=== PATIENT | male | born 1960 | race Caucasian/White ===

== ENCOUNTER 2017-07-27 12:18 | Observation (INO) | payer OTHER ==
[2017-07-27] MEDS ORDERED: MORPHINE SULFATE INJ 2 MG IVP PRN (14:40)
[2017-07-27] MEDS ORDERED: ATIVAN TAB 1 MG PO PRN (14:40)
[2017-07-27] MEDS ORDERED: NITROSTAT SL PRN (14:40)
[2017-07-27 15:13] LABS: BASOPHILS % (AUTO) 0.6 % (0.2-1.0); EOSINOPHILS # (AUTO) 0.1 x10^3/uL (0.0-0.2); HEMATOCRIT 38.1 % (42.0-54.0); HEMOGLOBIN 12.5 g/dL (13.5-18.0); LYMPHOCYTES # (AUTO) 1.5 X10^3/uL (1.3-2.9); LYMPHOCYTES % (AUTO) 21.2 % (21.0-51.0); MEAN CORPUSCULAR HEMOGLOBIN 27.4 pg (27.0-34.0); MEAN CORPUSCULAR HGB CONC 32.9 g/dL (33.0-35.0); MEAN CORPUSCULAR VOLUME 83.3 fL (80.0-100.0); MEAN PLATELET VOLUME 9.8 fL (7.4-11.0); MONOCYTES # (AUTO) 0.7 x10^3/uL (0.3-0.8); MONOCYTES % (AUTO) 9.4 % (0.0-13.0); NEUTROPHILS # (AUTO) 4.9 x10^3/uL (2.2-4.8); NEUTROPHILS % (AUTO) 67.8 % (42.0-75.0); PLATELET COUNT 153 X10^3/uL (150.0-450.0); RED BLOOD COUNT 4.58 X10^6/uL (4.7-6.0); RED CELL DISTRIBUTION WIDTH 14.2 % (11.6-16.5); WHITE BLOOD COUNT 7.3 X10^3/uL (3.6-10.0)
[2017-07-27] MEDS: PEPCID TAB 20 MG PO SCH ×2 (15:23→20:02)
[2017-07-27 15:29] LABS: ALANINE AMINOTRANSFERASE 51 Units/L (12-78); ALBUMIN 3.7 g/dL (3.4-5.0); ALKALINE PHOSPHATASE 54 Units/L (46-116); ASPARTATE AMINO TRANSFERASE 36 Units/L (15-37); BLOOD UREA NITROGEN 12 mg/dL (7-18); CALCIUM 8.8 mg/dL (8.5-10.1); CARBON DIOXIDE 32.2 mmol/L (21-32); CHLORIDE 106 mmol/L (98-107); CREATININE 1.14 mg/dL (0.70-1.30); GLUCOSE 97 mg/dL (65-99); SODIUM 143 mmol/L (136-145); TOTAL PROTEIN 7.5 g/dL (6.4-8.2); eGFR BLACK RACES > 60 (>60); eGFR NON BLACK RACES > 60 (>60)
[2017-07-27] MEDS: ZESTRIL TAB 10 MG PO SCH (15:32)
[2017-07-27 15:36] LABS: CKMB % 0.5 % (<4); CREATINE KINASE 338 Units/L (39-308); CREATINE KINASE MB 1.6 ng/mL (0-4.0); TROPONIN I < 0.02 ng/mL (0-1.5)
[2017-07-27] MEDS ORDERED: ANTIVERT TAB 25 MG PO PRN (15:44)
[2017-07-27] MEDS: PLAVIX PO SCH (15:50)
[2017-07-27] MEDS: ASPIRIN PO SCH (15:50)
[2017-07-27] MEDS: PROTONIX INJ 40 MG VIAL IVP SCH (15:51)
[2017-07-27] MEDS: NS 1000 ML 1,000 ML IV SCH (15:51)
[2017-07-27 15:58] VITALS: BMI 44.6
[2017-07-27 16:13] LABS: BILIRUBIN,URINE NEGATIVE (NEGATIVE); BLOOD/HEMOGLOBIN,URINE NEGATIVE (NEGATIVE); GLUCOSE, URINE NEGATIVE (NEGATIVE); KETONES,URINE NEGATIVE (NEGATIVE); LEUKOCYTE ESTERASE ,URINE NEGATIVE (NEGATIVE); NITRITES,URINE NEGATIVE (NEGATIVE); PROTEIN,URINE NEGATIVE (NEGATIVE); UROBILINOGEN,URINE NORMAL (NORMAL)
--- NOTE | 2017-07-27 16:14 | RAD ---
HISTORY: 56-year-old male with chest pain. Study: Frontal view of the chest. Comparison: None. Findings: The trachea is midline. The cardiac silhouette is enlarged. The lungs are clear without focal conso lidation, effusion or pneumothorax. Soft tissues are unremarkable. Osseous structures are unremarkab le. IMPRESSION: 1. Cardiomegaly without other acute cardiopulmonary process. Reported By:
[2017-07-27 16:24] LABS: AMORPHOUS SEDIMENT,UR TRACE /HPF (NEGATIVE); APPEARANCE,URINE CLEAR (CLEAR); BACTERIA,URINE NEGATIVE /HPF (NEGATIVE); COLOR,URINE YELLOW (YELLOW); RBC,URINE NONE SEEN /HPF (NEGATIVE); SQUAMOUS EPITHELIAL CELL,UR NEGATIVE /HPF (NEGATIVE)
[2017-07-27] MEDS ORDERED: NS 100 ML IV 100 ML IV ONE (18:22)
--- NOTE | 2017-07-27 18:23 | DR.H&P ---
H&P - History & Physical for Day of: H&P Date: 07/27/17 - Chief Complaint Chief Complaint: CHEST PAIN, ABDOMINAL PAIN - Allergies Allergies/Adverse Reactions: Allergies Allergy/AdvReac Type Severity Reaction Status Date / Time No Known Drug Allergies Allergy Verified 07/27/17 14:39 - History of Present Illness History of Present Illness: IS A 56 YEAR OLD PATIENT OF OURS WHO PRESENTED TO THE OFFICE TODAY WITH COMPLAINTS OF CHEST PAIN AND ABDOMINAL PAIN. PATIENT REPORTED THAT CHEST PAIN BEGAN YESTERDAY. HE DESCRIBES IT HEAVINESS/ PRESSURE. HE REPORTS THAT PAIN IS INTERMITTENT. ASSOCIATED SYMPTOMS INCLUDE WEAKNESS AND DIZZINESS. PATIENT WAS SEEN IN THE OFFICE LAST WEEK AND STARTED ON CIPRO AND FLAGYL FOR DIVERTICULITIS. TODAY, HE CONTINUES WITH DIFFUSE ABDOMINAL PAIN. WE PLAN TO ADMIT PATIENT FOR FURTHER TREATMENT AND EVALUATION. HE WILL BE STARTED ON THE CHEST PAIN PROTOCOL, WITH THE FOLLOWING MEDICATIONS: ASPIRIN 325MG PO DAILY, PLAVIX 75MG PO DAILY, PEPCID 20MG PO BID, LISINOPRIL 10MG DAILY , ATIVAN 1MG PO Q8H PRN ANXIETY, MORPHINE 2MG IV Q2H PRN PAIN, NITRO 0.4MG SL Q5M PRN CHEST PAIN, AND PROTONIX 40MG IV DAILY. WE WILL ALSO REVIEW HOME MEDICATIONS ON ADMISSION. WE WILL CHECK A CBC, CMP, CHEST XRAY, SERIAL CARDIAC ENZYMES AND EKGs, AND ABD/PELVIS CT WITH CONTRAST ON ADMISSION. WE WILL RECHECK AM LABS AND FOLLOW UP WITH PATIENT IN THE MORNING. - Past Medical History Past Medical History: Dyslipidemia, GERD, Hypertension, Sleep Apnea Additional Medical History: DIVERTICULOSIS, BACK SURGERY - Past Surgical History Surgical History: Ortho Surgery Additional Surgical History: BACK SURGERY - Family History Family Medical History: Diabetes Mellitus, Cancer, [place], Coronary Artery Disease, Hypertension - Social History Does patient currently use any type of tobacco product: Yes Have you used tobacco products in the last 12 months: Yes Type of Tobacco Use: Smokeless Does any household member use tobacco: No Alcohol Use: None Drug Use: None - Medications Home Medications: Amlodipine Besylate [NORVASC 5 MG *] 1 tab PO DAILY 07/27/17 [History Confirmed 07/27/17] Ciprofloxacin HCl [Cipro] 1 tab PO BID 07/27/17 [History Confirmed 07/27/17] Dexlansoprazole [Dexilant] 1 tab PO BID 07/27/17 [History Confirmed 07/27/17] Doxazosin Mesylate 1 tab PO DAILY 07/27/17 [History Confirmed 07/27/17] Lisinopril 1 tab PO DAILY 07/27/17 [History Confirmed 07/27/17] Meclizine HCl 1 tab PO TID PRN 07/27/17 [History Confirmed 07/27/17] Meloxicam 0.5 tab PO BID 07/27/17 [History Confirmed 07/27/17] Metronidazole 1 tab PO TID 07/27/17 [History Confirmed 07/27/17] Ranitidine HCl 1 tab PO DAILY 07/27/17 [History Confirmed 07/27/17] Simvastatin 1 tab PO HS 07/27/17 [History Confirmed 07/27/17] - Review of Systems Constitutional: See HPI, Weakness Eyes: No Symptoms Reported ENT: No Symptoms Reported Respiratory: No Symptoms Reported Cardiovascular: Chest Pain, See HPI Gastrointestinal: No Symptoms Reported Genitourinary: No Symptoms Reported Musculoskeletal: No Symptoms Reported Skin: No Symptoms Reported Neurological: No Symptoms Reported - Physical Exam Vital Signs: Temperature 97.8 F Pulse Rate [Right Brachial] 56 Respiratory Rate 20 Blood Pressure [Right Arm] 157/81 O2 Sat by Pulse Oximetry 97 Oriented: Normal Eyes: Normal Ear: Normal Nose: Normal Throat: Normal Respiratory: Clear Throughout Cardiovascular: Normal : Normal Auscultation: Bowel Sounds: Normal Palpation: Normal Tenderness: Normal Skin: Normal Musculoskeletal: Normal Psychiatric: Normal Mood Description: Calm Affect: Normal Speech Pattern: Clear - Assessment/Plan (1) Chest pain Qualifiers: Chest pain type: unspecified Qualified Code(s): R07.9 - Chest pain, unspecified Status: Acute Plan: SERIAL CARDIAC ENZYMES AND EKG, NITRO SL AND MORPHINE IV PRN PAIN, CONTINUE TO MONITOR (2) Abdominal pain Qualifiers: Abdominal location: generalized Qualified Code(s): R10.84 - Generalized abdominal pain Status: Acute Plan: ABD/PELVIS CT WITH CONTRAST, MORPHINE IV PRN PAIN, CONTINUE TO MONITOR (3) Hypertension Qualifiers: Hypertension type: essential hypertension Qualified Code(s): I10 - Essential (primary) hypertension Status: Acute Plan: LISINOPRIL 10MG DAILY, NORVASC 5MG DAILY, CONTINUE TO MONITOR (4) GERD (gastroesophageal reflux disease) Qualifiers: Esophagitis presence: esophagitis presence not specified Qualified Code(s) : K21.9 - Gastro-esophageal reflux disease without esophagitis Status: Acute Plan: PEPCID 20MG PO BID, PROTONIX 40MG IV DAILY, CONTINUE TO MONITOR (5) Hyperlipidemia Qualifiers: Hyperlipidemia type: mixed hyperlipidemia Qualified Code(s): E78.2 - Mixed hyperlipidemia Status: Acute Plan: ZOCOR 20MG HS, CONTINUE TO MONITOR
[2017-07-27] MEDS: ZOCOR TAB 20 MG PO SCH (20:02)
[2017-07-27] MEDS: CARDURA PO SCH (20:50)
[2017-07-27 21:35] LABS: CKMB % 0.5 % (<4); CREATINE KINASE 300 Units/L (39-308); CREATINE KINASE MB 1.6 ng/mL (0-4.0); TROPONIN I < 0.02 ng/mL (0-1.5)
[2017-07-28 03:34] LABS: BASOPHILS % (AUTO) 0.6 % (0.2-1.0); EOSINOPHILS # (AUTO) 0.1 x10^3/uL (0.0-0.2); EOSINOPHILS % (AUTO) 1.9 % (0.9-2.9); HEMATOCRIT 36.8 % (42.0-54.0); HEMOGLOBIN 12.2 g/dL (13.5-18.0); LYMPHOCYTES # (AUTO) 1.8 X10^3/uL (1.3-2.9); LYMPHOCYTES % (AUTO) 24.6 % (21.0-51.0); MEAN CORPUSCULAR HEMOGLOBIN 27.5 pg (27.0-34.0); MEAN CORPUSCULAR HGB CONC 33.1 g/dL (33.0-35.0); MEAN PLATELET VOLUME 10.1 fL (7.4-11.0); MONOCYTES # (AUTO) 0.7 x10^3/uL (0.3-0.8); MONOCYTES % (AUTO) 9.8 % (0.0-13.0); NEUTROPHILS # (AUTO) 4.6 x10^3/uL (2.2-4.8); NEUTROPHILS % (AUTO) 63.1 % (42.0-75.0); PLATELET COUNT 137 X10^3/uL (150.0-450.0); RED BLOOD COUNT 4.43 X10^6/uL (4.7-6.0); RED CELL DISTRIBUTION WIDTH 13.9 % (11.6-16.5); WHITE BLOOD COUNT 7.3 X10^3/uL (3.6-10.0)
[2017-07-28 03:42] LABS: ALANINE AMINOTRANSFERASE 46 Units/L (12-78); ALBUMIN 3.4 g/dL (3.4-5.0); ALKALINE PHOSPHATASE 55 Units/L (46-116); ASPARTATE AMINO TRANSFERASE 31 Units/L (15-37); BLOOD UREA NITROGEN 13 mg/dL (7-18); CALCIUM 8.2 mg/dL (8.5-10.1); CHLORIDE 106 mmol/L (98-107); CHOL/HDL RATIO 3.9 (0.0-5.0); CHOLESTEROL 94 mg/dL (0-200); CREATININE 1.07 mg/dL (0.70-1.30); GLUCOSE 100 mg/dL (65-99); HDL CHOLESTEROL 24 mg/dL (40-60); SODIUM 142 mmol/L (136-145); TOTAL PROTEIN 6.4 g/dL (6.4-8.2); TRIGLYCERIDES 80 mg/dL (0-150); eGFR BLACK RACES > 60 (>60); eGFR NON BLACK RACES > 60 (>60)
[2017-07-28 03:47] LABS: CKMB % 0.5 % (<4); CREATINE KINASE 259 Units/L (39-308); CREATINE KINASE MB 1.2 ng/mL (0-4.0); TROPONIN I < 0.02 ng/mL (0-1.5)
[2017-07-28] MEDS: NS 1000 ML 1,000 ML IV SCH ×2 (05:30→18:18)
[2017-07-28] MEDS: PLAVIX PO SCH (08:06)
[2017-07-28] MEDS: PEPCID TAB 20 MG PO SCH ×2 (08:06→20:24)
[2017-07-28] MEDS: ZESTRIL TAB 10 MG PO SCH (08:06)
[2017-07-28] MEDS: ASPIRIN PO SCH (08:06)
[2017-07-28] MEDS: NORVASC TAB 5 MG PO SCH (08:06)
[2017-07-28] MEDS: PROTONIX INJ 40 MG VIAL IVP SCH (08:07)
--- NOTE | 2017-07-28 08:44 | CT ---
CT abdomen and pelvis with contrast Indication: Abdominal pain Technique: Helical CT images of the abdomen and pelvis were obtained with IV contrast. Reformatted im ages in the coronal and sagittal planes were also generated for review. Comparison: None Findings: Visualized lung bases are clear. Posterior fusion hardware at L4-L5 is present without acut e complication. No aggressive osseous lesion is identified. The liver, gallbladder, spleen, atrophic pancreas, adrenals and left kidney are unremarkable. The rig ht kidney is normal apart from a small probable cyst within the inferior pole. There is colonic diver ticulosis without evidence of acute inflammation. Remaining GI tract, including the appendix is ama l. The IVC, abdominal aorta and urinary bladder are normal. The prostate is mildly enlarged and bulge s into the base of the urinary bladder. There is a small fat containing umbilical hernia. No free air , free fluid or lymphadenopathy is identified. Impression: 1. No acute abnormality identified to explain patient's abdominal pain. 2. Mild prostatomegaly. Correlation with PSA levels recommended. 3. Uncomplicated colonic diverticulosis, small fat containing umbilical hernia and additional inciden elizabeth findings, as above. Reported By:
--- NOTE | 2017-07-28 08:57 | VAS ---
HISTORY: Chest pain, dizziness Study: Carotid Doppler ultrasound Comparison: No priors Technique: Multiple peres scale and color flow Doppler images of the right and left carotid arterial s ystem were obtained. The vertebral arterial system was evaluated as well. Findings: Normal color flow Doppler is seen throughout the right and left carotid arterial system. Peak systol ic arterial velocity in the right ICA is 96 centimeters/second . Peak systolic arterial velocity ICA is 73.5 centimeters/second. The ICA/CCA ratios are as follows : On the right 1.5 1 and on the left 0. 71. No significant plaque is seen. No hemodynamically significant stenosis is seen based on velocity criteria. The left vertebral herbie ry flows cephalad. Right vertebral artery signal is not identified. This may be on a technical Basis. IMPRESSION: 1. No hemodynamically significant stenosis. 2. Left vertebral left vertebral artery flow cephalad. Right vertebral artery signal left vertebral a rtery flow cephalad. Right vertebral artery signal is not. This may be on a technical basis. Reported By:
[2017-07-28] MEDS ORDERED: CARDURA PO SCH (09:00)
[2017-07-28] MEDS ORDERED: MELOXICAM PO SCH (09:15)
--- NOTE | 2017-07-28 10:00 | PCM.PROG ---
Progress Note - Progress Note for Day of Date: 07/28/17 - Subjective Subjective: WAS A DIRECT ADMISSION FOR CHEST PAIN AND ABDOMINAL PAIN. HE IS ALERT AND ORIENTED, SITTING UP IN BED ON MORNING ROUNDS. HE DENIES CHEST PAIN OR SHORTNESS OF BREATH THIS MORNING. HE CONTINUES WITH DIFFUSE ABDOMINAL PAIN. LUNGS ARE CLEAR TO AUSCULTATION. BOWEL SOUNDS NORMAL IN ALL QUADRANTS. VITALS THIS AM ARE 97.8-56-20-96%-118/66. CBC WBL EXCEPT RBC 4.43, HGB 12.2, HCT 36.8. CMP WNL EXCEPT GLUCOSE 100, CALCIUM 8.2, HDL 24. CARDIAC ENZYMES WNL. MOST RECENT EKG REPORTS SINUS BRADYCARDIA WITH RATE OF 46. A CT OF ABD/PELVIS WITH CONTRAST WAS OBTAINED. IT REPORTED NO ACUTE ABNORMAILTY IDENTIFIED TO EXPAIN PAIN, MILD PROSTATOMEGALY, UNCOMPLICATED COLONIC DIVERTICULOSIS, SMALL FAT CONTAINING UMBILICAL HERNIA. CAROTIC ARTERY US REPORTS NO HEMODYNAMICALLY SIGNIFICANT STENOSIS. WE WILL OBTAIN AN ECHO TODAY. WE WILL DISCONTINUE ASPIRIN AND PLAVIX PER PATIENT'S REQUEST. WE WILL RECHECK AM LABS AND FOLLOW UP WITH PATIENT IN THE MORNING. - Past Medical Family Social History Past Med/Fam/Surg Hx: No changes since H&P Allergies: Allergies No Known Drug Allergies Allergy (Verified 07/27/17 14:39) - Review of Systems ROS: No change since H&P - Vital Signs and I&O's Vital Signs: Temperature 97.7 F Pulse Rate [Left Brachial] 53 Pulse Rate [Right Brachial] 57 Respiratory Rate 18 Blood Pressure [Right Arm] 128/69 O2 Sat by Pulse Oximetry 98 Intake and Output: Intake & Output 07/25/17 07/26/17 07/27/17 07/28/17 11:59 11:59 11:59 11:59 Intake Total 1439 Output Total 600 Balance 839 - Physical Exam Oriented: Normal Eyes: Normal Ear: Normal Nose: Normal Throat: Normal Respiratory: Normal Cardiovascular: Normal : Normal Auscultation: Bowel Sounds: Normal Palpation: Normal Tenderness: Normal Skin: Normal Musculoskeletal: Normal Psychiatric: Normal Mood Description: Calm Affect: Normal Speech Pattern: Clear, Appropriate - Laboratory and Diagnostics Result Diagrams: 07/28/17 03:07 07/28/17 03:07 Labs: Laboratory WBC 7.3 X10^3/uL (3.6-10.0) 07/28/17 03:07 RBC 4.43 X10^6/uL (4.7-6.0) L 07/28/17 03:07 Hgb 12.2 g/dL (13.5-18.0) L 07/28/17 03:07 Hct 36.8 % (42.0-54.0) L 07/28/17 03:07 MCV 83.0 fL (80.0-100.0) 07/28/17 03:07 MCH 27.5 pg (27.0-34.0) 07/28/17 03:07 MCHC 33.1 g/dL (33.0-35.0) 07/28/17 03:07 RDW 13.9 % (11.6-16.5) 07/28/17 03:07 Plt Count 137 X10^3/uL (150.0-450.0) L 07/28/17 03:07 MPV 10.1 fL (7.4-11.0) 07/28/17 03:07 Neut % 63.1 % (42.0-75.0) 07/28/17 03:07 Lymph % 24.6 % (21.0-51.0) 07/28/17 03:07 Pepin % 9.8 % (0.0-13.0) 07/28/17 03:07 Eos % 1.9 % (0.9-2.9) 07/28/17 03:07 Baso % 0.6 % (0.2-1.0) 07/28/17 03:07 Neut # 4.6 x10^3/uL (2.2-4.8) 07/28/17 03:07 Lymph # 1.8 X10^3/uL (1.3-2.9) 07/28/17 03:07 Pepin # 0.7 x10^3/uL (0.3-0.8) 07/28/17 03:07 Eos # 0.1 x10^3/uL (0.0-0.2) 07/28/17 03:07 Baso # 0.0 X10^3/uL (0.0-0.1) 07/28/17 03:07 Absolute Nucleated RBC 0.1 /100WBC 07/28/17 03:07 INR Target Range - 07/27/17 15:01 INR 1.11 (0.8-1.3) 07/27/17 15:01 PTT 31.2 SECONDS (22.9-36.5) 07/27/17 15:01 PTT Comment - 07/27/17 15:01 Sodium 142 mmol/L (136-145) 07/28/17 03:07 Corrected Sodium TNP 07/28/17 03:07 Potassium 4.2 mmol/L (3.5-5.1) 07/28/17 03:07 Chloride 106 mmol/L (98-107) 07/28/17 03:07 Carbon Dioxide 30.0 mmol/L (21-32) 07/28/17 03:07 BUN 13 mg/dL (7-18) 07/28/17 03:07 Creatinine 1.07 mg/dL (0.70-1.30) 07/28/17 03:07 Est GFR (MDRD) Af Amer > 60 (>60) 07/28/17 03:07 Est GFR (MDRD) Non-Af > 60 (>60) 07/28/17 03:07 Glucose 100 mg/dL (65-99) H 07/28/17 03:07 Calcium 8.2 mg/dL (8.5-10.1) L 07/28/17 03:07 Corrected Calcium TNP 07/28/17 03:07 Magnesium 2.0 mg/dL (1.7-2.9) 07/27/17 15:01 Total Bilirubin 0.30 mg/dL (0.2-1.0) 07/28/17 03:07 AST 31 Units/L (15-37) 07/28/17 03:07 ALT 46 Units/L (12-78) 07/28/17 03:07 Alkaline Phosphatase 55 Units/L (46-116) 07/28/17 03:07 Creatine Kinase 259 Units/L (39-308) 07/28/17 03:07 CK-MB (CK-2) 1.2 ng/mL (0-4.0) 07/28/17 03:07 CK/CKMB % Calc 0.5 % (<4) 07/28/17 03:07 Troponin I < 0.02 ng/mL (0-1.5) 07/28/17 03:07 Total Protein 6.4 g/dL (6.4-8.2) 07/28/17 03:07 Albumin 3.4 g/dL (3.4-5.0) 07/28/17 03:07 Globulin 3.0 g/dL (2.5-4.5) 07/28/17 03:07 Albumin/Globulin Ratio 1.1 Ratio (1.1-2.1) 07/28/17 03:07 Triglycerides 80 mg/dL (0-150) 07/28/17 03:07 Cholesterol 94 mg/dL (0-200) 07/28/17 03:07 LDL Cholesterol, Calc 54 mg/dL (0-100) 07/28/17 03:07 HDL Cholesterol 24 mg/dL (40-60) L 07/28/17 03:07 Cholesterol/HDL Ratio 3.9 (0.0-5.0) 07/28/17 03:07 Specimen Type Clean catch urine 07/27/17 15:49 Urine Color Yellow (YELLOW) 07/27/17 15:49 Urine Appearance Clear (CLEAR) 07/27/17 15:49 Urine pH 6.0 (5.0 - 8.0) 07/27/17 15:49 Ur Specific [place] 1.015 (1.000-1.030) 07/27/17 15:49 Urine Protein Negative (NEGATIVE) 07/27/17 15:49 Urine Glucose (UA) Negative (NEGATIVE) 07/27/17 15:49 Urine Ketones Negative (NEGATIVE) 07/27/17 15:49 Urine Occult Blood Negative (NEGATIVE) 07/27/17 15:49 Urine Nitrite Negative (NEGATIVE) 07/27/17 15:49 Urine Bilirubin Negative (NEGATIVE) 07/27/17 15:49 Urine Urobilinogen Normal (NORMAL) 07/27/17 15:49 Ur Leukocyte Esterase Negative (NEGATIVE) 07/27/17 15:49 Urine RBC None seen /HPF (NEGATIVE) 07/27/17 15:49 Urine WBC 0-1 /HPF (NEGATIVE) 07/27/17 15:49 Ur Squamous Epith Cells Negative /HPF (NEGATIVE) 07/27/17 15:49 Amorphous Sediment Trace /HPF (NEGATIVE) 07/27/17 15:49 Urine Bacteria Negative /HPF (NEGATIVE) 07/27/17 15:49 Ur Culture Indicated? No/not indicated 07/27/17 15:49 H. pylori IgG Antibody Negative (NEGATIVE) 07/27/17 15:07 - Plan (1) Chest pain Status: Acute Qualifiers: Chest pain type: unspecified Qualified Code(s): R07.9 - Chest pain, unspecified Plan: SERIAL CARDIAC ENZYMES AND EKG, NITRO SL AND MORPHINE IV PRN PAIN, CONTINUE TO MONITOR (2) Abdominal pain Status: Acute Qualifiers: Abdominal location: generalized Qualified Code(s): R10.84 - Generalized abdominal pain Plan: ABD/PELVIS CT WITH CONTRAST, MORPHINE IV PRN PAIN, CONTINUE TO MONITOR (3) Hypertension Status: Acute Qualifiers: Hypertension type: essential hypertension Qualified Code(s): I10 - Essential (primary) hypertension Plan: LISINOPRIL 10MG DAILY, NORVASC 5MG DAILY, CONTINUE TO MONITOR (4) GERD (gastroesophageal reflux disease) Status: Acute Qualifiers: Esophagitis presence: esophagitis presence not specified Qualified Code(s) : K21.9 - Gastro-esophageal reflux disease without esophagitis Plan: PEPCID 20MG PO BID, PROTONIX 40MG IV DAILY, CONTINUE TO MONITOR (5) Hyperlipidemia Status: Acute Qualifiers: Hyperlipidemia type: mixed hyperlipidemia Qualified Code(s): E78.2 - Mixed hyperlipidemia Plan: ZOCOR 20MG HS, CONTINUE TO MONITOR
[2017-07-28] MEDS: ZOCOR TAB 20 MG PO SCH (20:24)
[2017-07-28] MEDS: MOBIC TAB 15 MG PO SCH (20:24)
[2017-07-28] MEDS: CARDURA PO SCH (20:25)
[2017-07-29 05:04] LABS: BASOPHILS # (AUTO) 0.1 X10^3/uL (0.0-0.1); BASOPHILS % (AUTO) 0.6 % (0.2-1.0); EOSINOPHILS # (AUTO) 0.1 x10^3/uL (0.0-0.2); EOSINOPHILS % (AUTO) 1.6 % (0.9-2.9); HEMATOCRIT 35.3 % (42.0-54.0); HEMOGLOBIN 11.8 g/dL (13.5-18.0); LYMPHOCYTES # (AUTO) 2.1 X10^3/uL (1.3-2.9); LYMPHOCYTES % (AUTO) 22.6 % (21.0-51.0); MEAN CORPUSCULAR HEMOGLOBIN 27.8 pg (27.0-34.0); MEAN CORPUSCULAR HGB CONC 33.3 g/dL (33.0-35.0); MEAN CORPUSCULAR VOLUME 83.5 fL (80.0-100.0); MEAN PLATELET VOLUME 10.5 fL (7.4-11.0); MONOCYTES # (AUTO) 0.8 x10^3/uL (0.3-0.8); MONOCYTES % (AUTO) 8.7 % (0.0-13.0); NEUTROPHILS # (AUTO) 6.2 x10^3/uL (2.2-4.8); NEUTROPHILS % (AUTO) 66.5 % (42.0-75.0); PLATELET COUNT 138 X10^3/uL (150.0-450.0); RED BLOOD COUNT 4.22 X10^6/uL (4.7-6.0); RED CELL DISTRIBUTION WIDTH 14.3 % (11.6-16.5); WHITE BLOOD COUNT 9.3 X10^3/uL (3.6-10.0)
[2017-07-29 05:21] LABS: ALANINE AMINOTRANSFERASE 43 Units/L (12-78); ALBUMIN 3.1 g/dL (3.4-5.0); ALKALINE PHOSPHATASE 52 Units/L (46-116); ASPARTATE AMINO TRANSFERASE 24 Units/L (15-37); BLOOD UREA NITROGEN 14 mg/dL (7-18); CALCIUM 8.2 mg/dL (8.5-10.1); CARBON DIOXIDE 28.3 mmol/L (21-32); CHLORIDE 107 mmol/L (98-107); COR CA(FOR HYPOALB) 8.9 mg/dL (8.5-10.1); CREATININE 1.05 mg/dL (0.70-1.30); GLUCOSE 105 mg/dL (65-99); SODIUM 141 mmol/L (136-145); TOTAL PROTEIN 6.5 g/dL (6.4-8.2); eGFR BLACK RACES > 60 (>60); eGFR NON BLACK RACES > 60 (>60)
[2017-07-29] MEDS: NS 1000 ML 1,000 ML IV SCH (05:36)
[2017-07-29 05:55] LABS: PLATELET MORPHOLOGY COMMENT NORMAL (NORMAL)
[2017-07-29 08:04] VITALS: BP 138/75
[2017-07-29] MEDS: ZESTRIL TAB 10 MG PO SCH (08:30)
[2017-07-29] MEDS: MOBIC TAB 15 MG PO SCH (08:30)
[2017-07-29] MEDS: NORVASC TAB 5 MG PO SCH (08:30)
[2017-07-29] MEDS: PROTONIX INJ 40 MG VIAL IVP SCH (08:30)
[2017-07-29] MEDS: PEPCID TAB 20 MG PO SCH (08:30)
== END 2017-07-29 12:20 | disposition home or self-care (01) ==
LOC: MED/SURG 12:18
PROVIDERS: ADMIT Internal Medicine; ATTEND Internal Medicine
DX: R07.89 Other chest pain (principal); R10.84 Generalized abdominal pain; K57.92 Diverticulitis of intestine, part unspecified, without perforation or abscess without bleeding; K21.9 Gastro-esophageal reflux disease without esophagitis; I10 Essential (primary) hypertension; R06.02 Shortness of breath; R94.31 Abnormal electrocardiogram [ECG] [EKG]; I51.7 Cardiomegaly; N40.0 Benign prostatic hyperplasia without lower urinary tract symptoms; D64.89 Other specified anemias; Z79.899 Other long term (current) drug therapy
CPT/HCPCS: 36415; 71010; 74177; 80053; 80061; 81001; 82550; 82553; 83735; 84153; 84154; 84484; 85025; 85610; 85730; 86677; 93005; 93306; 93880; 94760; A4216; A4222; C9113; G0378